=== PATIENT | female | born 1990 | race Caucasian/White ===

== ENCOUNTER 2021-03-29 00:27 | Inpatient (IN) | payer OTHER ==
[~2021-03-29] VITALS: Ht 170.2 cm; Wt 89.4 kg
[~2021-03-29 00:27] MED LIST: COLACE 100MG C100 MG PO; PRENATAL VITAM1 EAC8 PO
[2021-03-29 01:23] LABS: HEMOGLOBIN 9.8 gm/dl (12.3-15.3); RED BLOOD COUNT 3.3 M/UL (4.00-5.10); WHITE BLOOD COUNT 6.3 K/UL (4.5-11.0)
[2021-03-29] MEDS ORDERED: IRON325 M1 PO (06:09)
[2021-03-30 06:31] LABS: HEMOGLOBIN 9.3 gm/dl (12.3-15.3)
== END 2021-03-30 16:10 | disposition home or self-care (01) | DRG 807 ==
LOC: GENOP 00:27 → OB 00:53
PROVIDERS: ADMIT Obstetrics & Gynecology
PROC: 10E0XZZ Delivery of Products of Conception, External Approach (ICD-10-PCS; principal; 2021-03-29)
PROC: 4A1HXCZ Monitoring of Products of Conception, Cardiac Rate, External Approach (ICD-10-PCS; 2021-03-29)
DX: O99.02 Anemia complicating childbirth (principal); Z37.0 Single live birth; Z3A.39 39 weeks gestation of pregnancy; O99.344 Other mental disorders complicating childbirth; F32.9 Major depressive disorder, single episode, unspecified; F41.9 Anxiety disorder, unspecified; M79.7 Fibromyalgia; Z20.822 Contact with and (suspected) exposure to COVID-19
CPT/HCPCS: 36415; 51702; 82800; 85014; 85018; 85025; 90707; 90715; J2590; J2795; J3010; J7120; U0002